=== PATIENT | female | born 1955 | race African-American/Black ===

== ENCOUNTER 2024-05-14 06:22 | Observation (INO) ==
[2024-05-14] MEDS: Albuterol (2.5 MG) 0.5 % CONC 0.5 ML NEB.SOLN INH ONE (06:51)
[2024-05-14 07:02] LABS: ABS Eosinophils 0.8 10^3/uL (0.0-0.5); ABS Lymphocytes 1.5 10^3/uL (1.0-4.8); ABS Monocytes 0.5 10^3/uL (0.0-0.9); ABS Neutrophils 3.1 10^3/uL (1.5-7.6); Eosinophil % 13.3 %; Hematocrit 30.4 % (35-45); Hemoglobin 10.2 g/dL (11.5-14.3); Lymphocyte % 24.7 %; Mean Corpuscular Hemoglobin 30.1 pg (27-33); Mean Corpuscular Hgb Conc 33.5 g/dL (31-36); Mean Corpuscular Volume 90.1 fL (80-97); Mean Platelet Volume 8.4 fL (7.5-11.2); Nucleated Red Blood Cells % 0.1 %/100WBC (0.0-0.8); Platelet Count 220 10^3/uL (150-450); Red Blood Count 3.37 10^6/uL (3.63-4.92); Red Cell Distribution Width 15.4 % (12-17)
[2024-05-14 08:00] LABS: Albumin 3.7 g/dL (3.2-5.2); Albumin/Globulin Ratio 1.2 (1-3); C Reactive Protein 6.69 mg/L (<8.01); Creatinine, Serum 0.7 mg/dL (0.51-0.95); Globulin 3.2 g/dL (2-4); Total Bilirubin 0.9 mg/dL (0.2-1.0); Total Protein 6.9 g/dL (6.4-8.9); eGFR CKD-EPI 94.7 (>60)
[2024-05-14 08:31] LABS: High Sensitivity Troponin 1 Hr 10 pg/mL (<15)
[2024-05-14] MEDS: cefTRIAXone 1 gm/50 mL D5W 1 GM/50 ML BAG IV ONE (10:03)
[2024-05-14] MEDS: Azithromycin 500 mg/250 ml NS 500 MG/250 ML BAG IVPB ONE (11:01)
[2024-05-14] MEDS: Enoxaparin 40 MG/0.4 ML SYR SUBCUT SCH (11:01)
[2024-05-14] MEDS: Furosemide 40 mg/4 ml IV VIAL IV ONE (11:01)
[2024-05-14] MEDS: Iodixanol (CONTRAST) 320 MG/ML 100 ML SDV IV ONE (13:01)
[2024-05-14] MEDS: Iohexol 350 (CONTRAST) 500 ML MDV IV ONE (13:02)
[2024-05-14] MEDS ORDERED: Lidocaine 4% CREAM (LMX) 5 GM TUBE TOPICAL PRN (18:53)
[2024-05-14] MEDS: Lidocaine PATCH 5% PATCH TRANSDERM SCH (19:41)
[2024-05-14] MEDS: Albuterol/Ipratropium NEB.SOL (2.5/0.5 MG) 3 ML NEB.SOLN INH PRN (19:54)
[2024-05-15] MEDS: Acetaminophen IV 1 GM/100ML 1,000 MG/100 ML BAG IV ONE (04:03)
[2024-05-15] MEDS: Benzocaine/Menthol LOZ MT PRN (04:06)
[2024-05-15 05:50] VITALS: BP 160/70
[2024-05-15] MEDS: Albuterol/Ipratropium NEB.SOL (2.5/0.5 MG) 3 ML NEB.SOLN INH SCH (07:30)
[2024-05-15] MEDS: cefTRIAXone 1 gm/50 mL D5W 1 GM/50 ML BAG IV SCH (08:24)
[2024-05-15] MEDS: Sulfur Hexaflouride MICROSPHR 25 MG VIAL IV ONE (08:50)
[2024-05-15] MEDS ORDERED: Sulfur Hexaflouride MICROSPHR 25 MG VIAL ONE (08:58)
[2024-05-15] MEDS ORDERED: Regadenoson 0.4 MG/5 ML SYRINGE ONE (10:06)
[2024-05-15] MEDS ORDERED: Aminophylline 25 MG/ML VIAL ONE (10:06)
[2024-05-15] MEDS ORDERED: Albuterol/Ipratropium NEB.SOL (2.5/0.5 MG) 3 ML NEB.SOLN INH PRN (12:45)
== END 2024-05-15 14:12 | disposition left against medical advice (07) ==
LOC: ED 06:22 → EDHOLD 06:22 → SUATTDRO 10:13 → MEDTELE 15:50
PROVIDERS: ADMIT Family Medicine; ATTEND Internal Medicine

== ENCOUNTER 2024-05-16 01:48 | Inpatient (IN) ==
[2024-05-16] MEDS ORDERED: nitroGLYCERIN DRIP 25,000 MCG/250 ML BTL ONE ×3 (02:13→04:54)
[2024-05-16 02:17] LABS: Venous Bicarbonate HCO3 19.6 mmol/L (24-28)
[2024-05-16] MEDS ORDERED: Ondansetron 4 mg VIAL 2 MG/ML 2 ml VIAL ONE (02:17)
[2024-05-16] MEDS: nitroGLYCERIN DRIP 25,000 MCG/250 ML BTL IV SCH ×2 (02:17→09:19)
[2024-05-16] MEDS: Ondansetron 4 mg VIAL 2 MG/ML 2 ml VIAL IV ONE (02:18)
[2024-05-16 02:31] LABS: PCO2 Arterial 61 mmHg (35-45); PO2 Arterial 75 mmHg (80-100)
[2024-05-16 02:38] LABS: Hematocrit 33.7 % (35-45); Hemoglobin 10.9 g/dL (11.5-14.3); Mean Corpuscular Hemoglobin 29.5 pg (27-33); Mean Corpuscular Hgb Conc 32.2 g/dL (31-36); Mean Corpuscular Volume 91.6 fL (80-97); Mean Platelet Volume 9.1 fL (7.5-11.2); Platelet Count 239 10^3/uL (150-450); Red Blood Count 3.68 10^6/uL (3.63-4.92); Red Cell Distribution Width 15.5 % (12-17); White Blood Count 15.6 10^3/uL (3.8-11.8)
[2024-05-16 02:41] LABS: INR 1.01 (0.83-1.13)
[2024-05-16 02:42] LABS: Activated Partial Thrombo Time 30.6 seconds (26.0-38.0)
[2024-05-16 02:49] LABS: Albumin/Globulin Ratio 1.2 (1-3); C Reactive Protein 42.67 mg/L (<8.01); Calcium 9.4 mg/dL (8.6-10.3); Creatinine, Serum 0.86 mg/dL (0.51-0.95); Globulin 3.3 g/dL (2-4); Potassium 4.3 mmol/L (3.5-5.0); Total Bilirubin 0.8 mg/dL (0.2-1.0); Total Protein 7.3 g/dL (6.4-8.9)
[2024-05-16] MEDS: Acetaminophen IV 1 GM/100ML 1,000 MG/100 ML BAG IV ONE (02:56)
[2024-05-16] MEDS: Furosemide 40 mg/4 ml IV VIAL IV ONE (02:56)
[2024-05-16 03:00] LABS: ABS Basophils 0.1 10^3/uL (0.0-0.1); ABS Eosinophils 0.1 10^3/uL (0.0-0.5); ABS Lymphocytes 7.4 10^3/uL (1.0-4.8); ABS Monocytes 0.9 10^3/uL (0.0-0.9); ABS Nucleated RBC 0.03 10^3/ul; Anisocytosis 1+; Eosinophil % 0.9 %; Lymphocyte % 47.7 %; Nucleated Red Blood Cells % 0.2 %/100WBC (0.0-0.8); Polychromasia 1+
[2024-05-16 04:09] LABS: High Sensitivity Troponin 1 Hr 27 pg/mL (<15)
[2024-05-16 05:10] LABS: ABS Lymphocytes 1.3 10^3/uL (1.0-4.8); ABS Monocytes 1.2 10^3/uL (0.0-0.9); ABS Neutrophils 7.9 10^3/uL (1.5-7.6); ABS Nucleated RBC 0.01 10^3/ul; Eosinophil % 0.2 %; Hematocrit 26.3 % (35-45); Hemoglobin 8.9 g/dL (11.5-14.3); Lymphocyte % 12.6 %; Mean Corpuscular Hemoglobin 30.3 pg (27-33); Mean Corpuscular Volume 89.3 fL (80-97); Mean Platelet Volume 8.9 fL (7.5-11.2); Nucleated Red Blood Cells % 0.1 %/100WBC (0.0-0.8); Platelet Count 197 10^3/uL (150-450); Red Blood Count 2.95 10^6/uL (3.63-4.92); Red Cell Distribution Width 14.9 % (12-17); White Blood Count 10.6 10^3/uL (3.8-11.8)
[2024-05-16 05:14] LABS: Urine Appearance Clear; Urine Bilirubin Negative (Negative); Urine Blood Negative (Negative); Urine Color Colorless; Urine Glucose Negative (Negative); Urine Ketones Negative (Negative); Urine Nitrite Negative (Negative); Urine Protein Negative (Negative); Urine Specific Gravity 1.008 (1.002-1.030); Urine Urobilinogen Negative (Negative)
[2024-05-16 05:19] LABS: Urine Bacteria 1+ /HPF (Absent); Urine Red Blood Cell Trace(0-2/hpf) /HPF (0-Trace); Urine White Blood Cell Trace(0-5/hpf) /HPF (0-Trace)
[2024-05-16 05:46] LABS: Anion Gap 4 mmol/L (2-16); Blood Urea Nitrogen 25 mg/dL (6-24); CO2 Carbon Dioxide 24 mmol/L (22-32); Calcium 7.3 mg/dL (8.6-10.3); Chloride 110 mmol/L (101-111); Creatinine, Serum 0.55 mg/dL (0.51-0.95); Glucose 114 mg/dL (70-100); Sodium 138 mmol/L (135-145); eGFR CKD-EPI 100.4 (>60)
[2024-05-16 06:48] LABS: Magnesium 1.7 mg/dL (1.9-2.7); Phosphorus 4.9 mg/dL (2.5-5.0)
[2024-05-16] MEDS: nitroGLYCERIN DRIP 25,000 MCG/250 ML BTL ONE (09:20)
[2024-05-16] MEDS: Magnesium Sulfate 2 gm BAG 2 GM/50 ML BAG IVPB ONE (10:07)
[2024-05-16] MEDS: cefTRIAXone 1 gm/50 mL D5W 1 GM/50 ML BAG IV ONE (10:07)
[2024-05-16] MEDS: Azithromycin 500 mg/250 ml NS 500 MG/250 ML BAG IVPB ONE (11:06)
[2024-05-16 11:20] LABS: Ferritin 246.8 ng/mL (11-307)
[2024-05-16 11:56] LABS: Cholesterol 103 mg/dL; HDL Cholesterol 45.9 mg/dL; LDL Cholesterol 49 mg/dL; Triglycerides 41 mg/dL
[2024-05-16 12:12] LABS: TSH Ultra Thyroid Stim Horm < 0.01 mcIU/mL (0.34-5.60)
[2024-05-16 12:14] LABS: Free T3 4.88 pg/mL (2.5-3.9); Free T4 3.69 ng/dL (0.61-1.12)
[2024-05-16] MEDS ORDERED: Sulfur Hexaflouride MICROSPHR 25 MG VIAL ONE (12:32)
[2024-05-16 12:56] LABS: ABS Basophils 0.1 10^3/uL (0.0-0.1); ABS Eosinophils 0.1 10^3/uL (0.0-0.5); ABS Lymphocytes 1.8 10^3/uL (1.0-4.8); ABS Monocytes 0.8 10^3/uL (0.0-0.9); ABS Neutrophils 6.1 10^3/uL (1.5-7.6); ABS Nucleated RBC 0.01 10^3/ul; Eosinophil % 1.7 %; Hematocrit 24.6 % (35-45); Hemoglobin 8.4 g/dL (11.5-14.3); Lymphocyte % 19.9 %; Mean Corpuscular Hemoglobin 30.4 pg (27-33); Mean Corpuscular Volume 89.4 fL (80-97); Nucleated Red Blood Cells % 0.1 %/100WBC (0.0-0.8); Platelet Count 166 10^3/uL (150-450); Red Blood Count 2.75 10^6/uL (3.63-4.92); Red Cell Distribution Width 14.6 % (12-17); White Blood Count 8.9 10^3/uL (3.8-11.8)
[2024-05-16] MEDS: Sulfur Hexaflouride MICROSPHR 25 MG VIAL IV ONE (13:13)
[2024-05-16 13:16] LABS: High Sens Troponin Baseline 44 pg/mL (<15)
[2024-05-16 13:33] LABS: Lithium < 0.16 mmol/L (0.6-1.2)
[2024-05-16 14:42] LABS: High Sensitivity Troponin 1 Hr 39 pg/mL (<15)
[2024-05-16 17:08] LABS: Immature Retic Fraction 0.35
[2024-05-16 17:14] LABS: RBC Retic Count 2.75 10^6/ul (3.63-4.92)
[2024-05-16 17:15] LABS: Corrected Retic Count 0.9 % (0.5-2.2); Hematocrit for Retic CNT 24.6 % (35-45)
[2024-05-16 18:44] LABS: Hematocrit 25.5 % (35-45); Hemoglobin 8.3 g/dL (11.5-14.3)
[2024-05-16] MEDS: Enoxaparin 40 MG/0.4 ML SYR SUBCUT SCH (21:05)
[2024-05-17 05:43] LABS: ABS Basophils 0.1 10^3/uL (0.0-0.1); ABS Eosinophils 0.5 10^3/uL (0.0-0.5); ABS Lymphocytes 2.4 10^3/uL (1.0-4.8); ABS Monocytes 0.7 10^3/uL (0.0-0.9); ABS Neutrophils 3.4 10^3/uL (1.5-7.6); ABS Nucleated RBC 0.01 10^3/ul; Eosinophil % 6.7 %; Hematocrit 26.8 % (35-45); Hemoglobin 8.8 g/dL (11.5-14.3); Lymphocyte % 34.4 %; Mean Corpuscular Hemoglobin 29.4 pg (27-33); Mean Corpuscular Hgb Conc 32.9 g/dL (31-36); Mean Corpuscular Volume 89.5 fL (80-97); Mean Platelet Volume 8.6 fL (7.5-11.2); Nucleated Red Blood Cells % 0.2 %/100WBC (0.0-0.8); Platelet Count 179 10^3/uL (150-450); Red Blood Count 2.99 10^6/uL (3.63-4.92)
[2024-05-17 06:21] LABS: Albumin 3.3 g/dL (3.2-5.2); Albumin/Globulin Ratio 1.2 (1-3); Calcium 9.4 mg/dL (8.6-10.3); Creatinine, Serum 0.53 mg/dL (0.51-0.95); Globulin 2.8 g/dL (2-4); Magnesium 2.1 mg/dL (1.9-2.7); Potassium 3.8 mmol/L (3.5-5.0); Total Protein 6.1 g/dL (6.4-8.9); eGFR CKD-EPI 101.3 (>60)
[2024-05-17] MEDS: cefTRIAXone 1 gm/50 mL D5W 1 GM/50 ML BAG IV ONE (09:40)
[2024-05-17] MEDS: Azithromycin 500 mg/250 ml NS 500 MG/250 ML BAG IVPB ONE (10:40)
[2024-05-17] MEDS: Albuterol/Ipratropium NEB.SOL (2.5/0.5 MG) 3 ML NEB.SOLN INH ONE (18:54)
[2024-05-17] MEDS: Hydrocortisone INJ 100 MG/2ML 2 ML VIAL IV SCH (19:05)
[2024-05-18 04:50] LABS: ABS Lymphocytes 2.1 10^3/uL (1.0-4.8); ABS Monocytes 0.6 10^3/uL (0.0-0.9); ABS Neutrophils 3.7 10^3/uL (1.5-7.6); ABS Nucleated RBC 0.03 10^3/ul; Eosinophil % 0.2 %; Hematocrit 30.6 % (35-45); Lymphocyte % 33.1 %; Mean Corpuscular Hemoglobin 29.3 pg (27-33); Mean Corpuscular Hgb Conc 32.7 g/dL (31-36); Mean Corpuscular Volume 89.5 fL (80-97); Mean Platelet Volume 8.5 fL (7.5-11.2); Nucleated Red Blood Cells % 0.4 %/100WBC (0.0-0.8); Platelet Count 221 10^3/uL (150-450); Red Blood Count 3.42 10^6/uL (3.63-4.92); Red Cell Distribution Width 14.5 % (12-17); White Blood Count 6.4 10^3/uL (3.8-11.8)
[2024-05-18 05:19] LABS: Albumin 3.5 g/dL (3.2-5.2); Albumin/Globulin Ratio 1.1 (1-3); Calcium 9.6 mg/dL (8.6-10.3); Creatinine, Serum 0.6 mg/dL (0.51-0.95); Globulin 3.1 g/dL (2-4); Phosphorus 3.8 mg/dL (2.5-5.0); Potassium 3.8 mmol/L (3.5-5.0); Total Bilirubin 0.7 mg/dL (0.2-1.0); Total Protein 6.6 g/dL (6.4-8.9); eGFR CKD-EPI 98.3 (>60)
[2024-05-18 12:18] VITALS: BP 165/72
[2024-05-20 00:08] LABS: Anaplasma phagocytophilum Negative (Negative); B. miyamotoi PCR, B Negative (Negative); Babesia divergens/MO-1 Negative (Negative); Babesia ducani Negative (Negative); Ehrlichia chaffeensis Negative (Negative); Ehrlichia ewingii/canis Negative (Negative); Ehrlichia muris eauclairensis Negative (Negative)
== END 2024-05-18 12:37 | disposition home or self-care (01) | DRG 280 ==
LOC: ED 01:48 → EDHOLD 03:12 → ICU 03:12
PROVIDERS: ADMIT Hospitalist; ATTEND Hospitalist